=== PATIENT | female | born 1955 | race Two or more races ===

== ENCOUNTER 2019-01-18 09:45 | Outpatient (CLI) | payer OTHER | END 2019-01-18 14:57 | disposition home or self-care (01) | LOC: RAD 09:45 | DX: M17.0 Bilateral primary osteoarthritis of knee (principal) ==

== ENCOUNTER 2019-02-02 10:30 | Outpatient (CLI) | payer OTHER | END 2019-02-02 10:48 | disposition home or self-care (01) | LOC: RAD 10:30 | DX: M54.5 Low back pain (principal) ==

== ENCOUNTER → 2019-05-09 | Outpatient (CLI) | payer OTHER | END | disposition home or self-care (01) | LOC: MAMO-SONO 12:58 | DX: N60.31 Fibrosclerosis of right breast (principal); N60.32 Fibrosclerosis of left breast ==

== ENCOUNTER 2020-02-06 14:40 | Outpatient (CLI) | payer OTHER | END 2020-02-06 15:07 | disposition home or self-care (01) | LOC: MAMO-SONO 14:40 | PROVIDERS: ATTEND Obstetrics & Gynecology Gynecology | DX: N60.29 Fibroadenosis of unspecified breast (principal) ==

== ENCOUNTER 2021-09-29 06:18 | Outpatient (CLI) | payer OTHER | END 2021-09-29 14:58 | disposition home or self-care (01) | LOC: MAMO-SONO 06:18 | PROVIDERS: ATTEND Obstetrics & Gynecology Gynecology | DX: N60.11 Diffuse cystic mastopathy of right breast (principal); N60.12 Diffuse cystic mastopathy of left breast ==

== ENCOUNTER 2022-06-28 13:13 | Outpatient (CLI) | payer OTHER | END 2022-06-28 13:30 | disposition home or self-care (01) | LOC: NUCLEAR 13:13 | PROVIDERS: ATTEND Family Medicine | DX: Z13.820 Encounter for screening for osteoporosis (principal) ==

== ENCOUNTER 2022-10-29 13:02 | Outpatient (CLI) | payer OTHER | END 2022-10-29 13:15 | disposition home or self-care (01) | LOC: MAMO-SONO 13:02 | PROVIDERS: ATTEND Obstetrics & Gynecology Gynecology | DX: N60.11 Diffuse cystic mastopathy of right breast (principal); N60.12 Diffuse cystic mastopathy of left breast ==

== ENCOUNTER → 2023-02-08 | Outpatient (CLI) | payer OTHER | END | disposition home or self-care (01) | LOC: SONOGRAMA 11:52 | PROVIDERS: ATTEND Internal Medicine Gastroenterology | DX: R16.2 Hepatomegaly with splenomegaly, not elsewhere classified (principal) ==

== ENCOUNTER → 2023-02-18 | Outpatient (CLI) | payer OTHER | END | disposition home or self-care (01) | LOC: TOM 09:01 | PROVIDERS: ATTEND Specialist | DX: N13.30 Unspecified hydronephrosis (principal) ==

== ENCOUNTER 2023-03-09 12:46 | Outpatient (CLI) | payer OTHER | END 2023-03-09 12:51 | disposition home or self-care (01) | LOC: NUCLEAR 12:46 | PROVIDERS: ATTEND Specialist | DX: N13.39 Other hydronephrosis (principal) | CPT/HCPCS: 78708; A9562 ==

== ENCOUNTER → 2024-04-20 | Outpatient (CLI) | payer OTHER | END | disposition home or self-care (01) | LOC: RAD 11:14 | PROVIDERS: ATTEND Orthopaedic Surgery Sports Medicine | DX: M17.0 Bilateral primary osteoarthritis of knee (principal) ==

== ENCOUNTER → 2024-04-25 | Outpatient (CLI) | payer OTHER | END | disposition home or self-care (01) | LOC: MRI 11:16 | PROVIDERS: ATTEND Orthopaedic Surgery Sports Medicine | DX: M22.42 Chondromalacia patellae, left knee (principal) | CPT/HCPCS: 73721 ==

== ENCOUNTER → 2024-10-18 | Outpatient (CLI) | payer OTHER | END | disposition home or self-care (01) | LOC: TOM 11:47 | DX: I10 Essential (primary) hypertension (principal) ==

== ENCOUNTER 2024-11-14 07:22 | Outpatient (CLI) | payer OTHER | END 2024-11-14 07:30 | disposition home or self-care (01) | LOC: MRI 07:22 | PROVIDERS: ATTEND Physical Medicine & Rehabilitation | DX: M54.50 Low back pain, unspecified (principal) | CPT/HCPCS: 72148 ==

== ENCOUNTER 2025-08-01 07:12 | Outpatient (CLI) | payer OTHER | END 2025-08-01 07:13 | disposition home or self-care (01) | LOC: NUCLEAR 07:12 | DX: D03.61 Melanoma in situ of right upper limb, including shoulder (principal); D03.59 Melanoma in situ of other part of trunk | CPT/HCPCS: 78816; A9552 ==